=== PATIENT | male | born 2000 | race African-American/Black ===

== ENCOUNTER 2018-12-10 13:09 | Inpatient (IN) | payer OTHER ==
[~2018-12-10] VITALS: Ht 185.4 cm; Wt 85.0 kg
[2018-12-10 14:51] LABS: HEMATOCRIT 43.1 % (42.0-52.0); HEMOGLOBIN 13.7 g/dl (13.5-17.5); MEAN CORPUSCULAR HEMOGLOBIN 29.4 pg (27.0-33.0); MEAN CORPUSCULAR HGB CONC 31.8 g/dl (32.0-36.5); MEAN CORPUSCULAR VOLUME 92.5 fl (80.0-96.0); PLATELET COUNT, AUTOMATED 207 10^3/uL (150-450); RED BLOOD COUNT 4.66 10^6/uL (4.30-6.10); WHITE BLOOD COUNT 8.4 10^3/uL (4.0-10.0)
[2018-12-10 15:37] LABS: AMPHETAMINES LEVEL URINE NEGATIVE (NEGATIVE); BARBITURATES URINE NEGATIVE (NEGATIVE); BENZODIAZEPINES URINE NEGATIVE (NEGATIVE); CANNABINOIDS URINE NEGATIVE (NEGATIVE); COCAINE METABOLITE URINE NEGATIVE (NEGATIVE); METHADONE URINE NEGATIVE (NEGATIVE); OPIATES URINE NEGATIVE (NEGATIVE); PHENCYCLIDINE URINE NEGATIVE (NEGATIVE)
[2018-12-10 15:40] LABS: ALBUMIN 3.8 GM/DL (3.2-5.2); ALT/SGPT 23 U/L (12-78); BILIRUBIN,DIRECT 0.2 MG/DL (0.0-0.2); BILIRUBIN,TOTAL 0.5 MG/DL (0.2-1.0); BLOOD UREA NITROGEN 10 MG/DL (7-18); CALCIUM LEVEL 8.6 MG/DL (8.5-10.1); CARBON DIOXIDE LEVEL 26 MEQ/L (21-32); CHLORIDE LEVEL 101 MEQ/L (98-107); CREATININE FOR GFR 0.83 MG/DL (0.70-1.30); GLUCOSE, FASTING 83 MG/DL (70-100); POTASSIUM SERUM 3.6 MEQ/L (3.5-5.1); SALICYLATE LEVEL < 1.7 MG/DL (5.0-30.0); SODIUM LEVEL 137 MEQ/L (136-145); THYROID STIMULATING HORMONE 0.666 uIU/ML (0.463-3.98); TOTAL PROTEIN 7.7 GM/DL (6.4-8.2)
[2018-12-10 15:41] LABS: ACETAMINOPHEN LEVEL < 2.0 UG/ML (10.0-30.0); ETHYL ALCOHOL (ETHANOL) < 0.003 % (0.000-0.010)
[2018-12-10] MEDS ORDERED: ACETAMINOPHEN 325 MG TAB PO ONE (16:15)
--- NOTE | 2018-12-10 20:12 | ECGEPIP ---
Stationary ECG Study [facility] - ED Test Date: 2018-12-10 Pat Name: BREE KAM Department: Room: - Gender: M [employer] Helper: abraham : 2000 Requested By: TATIANA PATINO Order Number: [id number] Reading MD: Anibal Soto Measurements Intervals [place] Rate: 58 P: 61 WA: 165 QRS: 71 QRSD: 101 T: 34 QT: 377 QTc: 371 Interpretive Statements SINUS BRADYCARDIA WITH MARKED SINUS ARRHYTHMIA NONSPECIFIC ST T WAVE CHANGES DELAYED R WAVE PROGRESSION NO OLD ECG Electronically Signed On 12-10-2018 20:12:11 EST by Anibal Soto
[2018-12-11] MEDS ORDERED: ACETAMINOPHEN TAB 650MG DOSE (2X325MG) PO PRN (00:30)
[2018-12-11] MEDS ORDERED: MAALOX 30 ML SUSP *UDC PO PRN (00:30)
[2018-12-11] MEDS ORDERED: traZODone 50 MG TAB PO PRN (00:30)
[2018-12-11] MEDS ORDERED: OLANZapine ORAL DISINTEGRATING TAB 5MG PO PRN (00:30)
[2018-12-11] MEDS ORDERED: MOM 30ML SUSPENSION UDC PO PRN (00:30)
[2018-12-11 03:45] VITALS: BP 125/63
--- NOTE | 2018-12-11 11:46 | HPEPDOC ---
[facility] Medical History & Physical Date of Admission Dec 11, 2018 History and Physical PCP: Frantz DA SILVAC ATTENDING: Dr. Juju Kam HPI: 18 yo M admitted to [facility] for unspecified depressive disorder, being medically examined today. No acute medical complaints today. Denies any fevers, chills, weakness, fatigue, RIOS, CP, SOB, cough, palpitations, abdominal pain, N/V/D or changes in bowel or bladder habits. PMHx: Anxiety Depression History of SI Self-harm, cutting PSHX: Denies SOCHX: Resides in: [facility], from [facility] Marital Status: Single Kids: None Employment: Active duty Tobacco use: Denies ETOH: Denies Illicit Drugs: Denies IV Drug Use: Denies Tattoos done unprofessionally: Denies FAMHX: Mother: Alive, well Father: Unknown Siblings: 3 Alive, well Children: None Unexpected deaths due to medical reasons: None. ROS: As noted in HPI, otherwise 11pt ROS of systems reviewed and unremarkable. PE: GEN: 18 yo M, appears stated age. Well-nourished, well developed. No acute distress. Alert and oriented x 3. Pleasant, interactive. HEENT: Normocephalic, atraumatic. Pupils are equal, round, and reactive to light. Extraocular movements are intact. No nystagmus appreciated. Sclera are nonicteric. Conjunctiva without injection. Nose midline. Nasal turbinates without bogginess. EACs both patent BL. TMs both visualized and collins with good cone of light, no bulging or erythema. No facial asymmetry. Moist mucous membranes. Dentition fair. Pharynx pink and moist, no cobblestoning. Neck supple, trachea midline. No lymphadenopathy or thyromegaly appreciated. CHEST: Regular rate and rhythm, +S1, +S2 LUNGS: Clear to auscultation bilaterally. No wheezes, rales, or rhonchi. Breathing appears symmetric and easy. Patient is speaking in full sentences. No accessory muscle use. ABD: Round, soft, non-tender, non-distended. +Bowel sounds throughout. No rebound or guarding. No costovertebral angle tenderness. EXT: Pulses 2+ bilaterally dorsalis pedis and radial. No lower extremity edema appreciated. SKIN: [place], dry, warm. Capillary refill <2sec. No rashes. Healed cut noted to the left forearm. NEURO: Alert and oriented x 3. Cranial nerves III-XII are intact. No focal deficits appreciated. EKG: SINUS BRADYCARDIA WITH MARKED SINUS ARRHYTHMIA NONSPECIFIC ST T WAVE CHANGES DELAYED R WAVE PROGRESSION NO OLD ECG Electronically Signed On 12-10-2018 20:12:11 EST by Anibal Soto A&P: 18 yo M admitted to [facility] for unspecified depressive disorder 1. Psych. Plan per Psychiatry. Obtain baseline EKG to assure the safety of psychiatric medications as they can prolong the QT interval. 2.Follow up with PCP on discharge. 3.Staff member Cameron present throughout exam. Vital Signs Vital Signs Date Time Temp Pulse Resp B/P (MAP) Pulse Ox O2 Delivery O2 Flow Rate FiO2 12/11/18 08:21 Room Air 12/11/18 03:45 97.8 64 14 125/63 (83) 99 Laboratory Data Labs 24H Laboratory Tests 2 12/10/18 14:41: Nucleated Red Blood Cells % (auto) 0.0, Anion Gap 10, Calcium Level 8.6, Aspartate Amino Transf (AST/SGOT) 20, Alanine Aminotransferase (ALT/SGPT) 23, Alkaline Phosphatase 79, Total Bilirubin 0.5, Direct Bilirubin 0.2, Total Protein 7.7, Albumin 3.8, Albumin/Globulin Ratio 0.97L, Thyroid Stimulating Hormone (TSH) 0.666, Salicylates Level < 1.7L, Acetaminophen Level < 2.0L, Ethyl Alcohol Level < 0.003 12/10/18 15:06: Urine Amphetamines Screen NEGATIVE, Urine Benzodiazepines Screen NEGATIVE, Urine Opiates Screen NEGATIVE, Urine Methadone Screen NEGATIVE, Urine Barbiturates Screen NEGATIVE, Urine Phencyclidine Screen NEGATIVE, Urine Cocaine Metabolite Screen NEGATIVE, Urine Cannabinoids Screen NEGATIVE CBC/BMP Laboratory Tests 12/10/18 14:41 Red Blood Count 4.66, Mean Corpuscular Volume 92.5, Mean Corpuscular Hemoglobin 29.4, Mean Corpuscular Hemoglobin Concent 31.8 L, Red Cell Distribution Width 11.9 Home Medications No Active Prescriptions or Reported Meds Allergies Coded Allergies: No Known Drug Allergy (Verified Allergy, Unknown, 12/10/18) Irma Jiang Dec 11, 2018 11:46
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
[2018-12-11] MEDS ORDERED: hydrOXYzine 25 MG TAB PO PRN (15:00)
[2018-12-11] MEDS: SERTRALINE HCL 25 MG TABLET PO SCH (15:13)
[2018-12-11 18:00] VITALS: BP 125/58
[2018-12-12 06:31] VITALS: BP 106/53
[2018-12-12] MEDS: SERTRALINE HCL 25 MG TABLET PO SCH (08:38)
--- NOTE | 2018-12-12 08:53 | MHDSPDOC ---
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 Per ED, pt reported worsening anxiety and stress secondary to family in the [place] and work (doesn't like his CO). Pt stated he recently returned from being on leave in the [place] with his family on 12/02/18. He stated in the ED that his mother called him a burden and he felt his brother took her side which made him feel depressed. Pt also stated "I feel like punching people in the face... mainly my boss" b/c he's depressed. Pt doesn't get along with his CO who he feels single out by and doesn't know how he'll cope being with around him while on [employer] at the end of November. 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 Pt continues to endorse depression but denies SI/HI. Pt not very open to discussing things in her life and started automatically asking for a different doctor b/c I wasn't helping him the way he wanted or was expecting. Started after he asked if he could leave today after less than 24hrs inpatient and told that would most likely not be possible . Had nurse come in and talk with pt along with me and open with her. Able to open up with me with aid of nurse. Doing much better and more open, no longer requesting another doctor. Denies si/hi, hallucinations, delusions. Feels safe here. Agreeable to zoloft for depression and atarax prn anxiety risks/benefits discussed. Encouraged to attend group daily as part of treatment. CONSULTANTS INVOLVED: none TREATMENT AND PROGRESS ON THE UNIT : Pt was admitted to [facility], seen for psychiatric assessment and started on zoloft 25mg daily. He was provided vistaril 25mg q6hr prn anxiety and trazodone 50mg qhs prn insomnia. Pt found his medications beneficial and tolerated them well. He attended groups daily during his stay. His symptoms improved with treatment. On day of discharge he denied depression, anxiety, insomnia, SI/HI, hallucinations, delusions. He was discharged home after Aditi meeting with follow-up at . He felt safe for discharge. DISCHARGE ASSESSMENT: Pt seen and states that his mood is good and is looking forward to going home tomorrow. Spoke with his 1st sergeant on the phone and states it went well and felt he was supportive. Spoke with pt about his worry regarding interaction with his CO at [facility] at the end of the month and feels he can cope with it w/o reacting and do the duties he needs to there. Also, states he is going to request a 1 on 1 meeting with his 1st sergeant just to talk about how he feels his CO treatments him as he believes his 1st sergeant is supportive. States he slept well last night with the use of trazodone. Feels he is tolerating his zoloft and feels it's beneficial. He is attending groups and finding them helpful. He socialized with peers yesterday and played games which he enjoyed. He denies depression, anxiety, insomnia, SI/HI, hallucinations, delusions. Pt feels safe to be discharged home with his Aditi. MENTAL STATUS EXAMINATION ON DISCHARGE: General Appearance: well groomed, appears stated age, hospital scrubs/clothing Build: average Demeanor: cooperative, pleasant Eye Contact: average Activity: average Behavior: cooperative Speech: clear, spontaneous, normal volume, reg/rate,rhythm,volume Mood: euthymic, calm Mood good Affect: euthymic, full range Thought Process: logical/linear, intact Thought Content (Delusions): none reported, denies SI, HI, AVH Thought Content (Other): none reported, appropriate Thought Content (Aggressive): none reported Perception (Hallucinations): none reported Perception (Other): none reported Cognition (Impairment of): none reported Cognition(Intelligence Est.): average Oriented: Awake, Alert, Oriented times three Insight: good Judgment: good Psychosis: Denies MEDICATIONS ON DISCHARGE: zoloft 25mg daily trazodone 50mg qhs prn insomnia PLAN/FOLLOWUP ARRANGEMENTS: D/c home with Aditi with follow-up at [facility]. The amount of time spent in the coordination of care for this patient was appr oximately 30 minutes. Vital Signs/I&Os Vital Signs Date Time Temp Pulse Resp B/P (MAP) Pulse Ox O2 Delivery O2 Flow Rate FiO2 12/12/18 06:31 96.6 63 12 106/53 (70) 12/11/18 08:21 Room Air 12/11/18 03:45 99 Medications No Active Prescriptions or Reported Meds Allergies Coded Allergies: No Known Drug Allergy (Verified Allergy, Unknown, 12/10/18) NATHALIE CARIAS DO Dec 12, 2018 8:53 am
[2018-12-12] MEDS ORDERED: TRAZO50TA PO (09:15)
[2018-12-12] MEDS ORDERED: SERT25TA PO (09:15)
== END 2018-12-12 12:32 | disposition home or self-care (01) | DRG 885 ==
LOC: M ED 13:09 → M ED INP 12-11 00:26 → M PSY 12-11 03:00
PROVIDERS: ADMIT Psychiatry & Neurology Psychiatry; ATTEND Psychiatry & Neurology Psychiatry
DX: F33.1 Major depressive disorder, recurrent, moderate (principal); Z62.811 Personal history of psychological abuse in childhood; Z91.5 Personal history of self-harm